=== PATIENT | male | born 1940 | race Caucasian/White ===

== ENCOUNTER 2017-03-24 20:30 | Inpatient (IN) ==
[2017-03-24] MEDS ORDERED: 0.9 % Sodium Chloride 1,000 ML IVC ONE (21:55)
[2017-03-24] MEDS ORDERED: Acetaminophen 325 MG TABLET PO ONE (21:55)
--- NOTE | 2017-03-24 22:27 | Emergency Department Note ---
Disposition Clinical Impression: Cellulitis Qualifiers: Site of cellulitis: extremity Site of cellulitis of extremity: lower extremity Laterality: left Qualified Code(s): L03.116 - Cellulitis of left lower limb Leukopenia Qualifiers: Leukopenia type: other Qualified Code(s): D72.818 - Other decreased white blood cell count Disposition: Admitted As Inpatient Condition: Fair Time of Disposition: 00:17 Fever HPI - General Chief Complaint: ED Fever Stated Complaint: Fever, dizzy, sore on L leg Time Seen by Provider: 03/24/17 22:04 Mode of arrival: ambulatory Limitations: no limitations Nursing Notes Reviewed: Yes Vital Signs Reviewed: Yes - History of Present Illness HPI Narrative: 77-year-old male presents with left leg swelling, left anterior leg redness, concern for possible cellulitis, patient's had temperatures 103 at home patient states his legs more swollen, he recently had a knee replacement in December with Dr. Jefferson reyes, he seen by his orthopedist about a week ago, he stated that his orthopedist place him on Bactrim he is better since then he has had more blisters on the anterior leg, more redness and swelling. He reports one out of 10 pain that he describes as achy leg. Denies chest pain, cough, myalgias, dysuria patient has reported some dizziness as well. Pt Subjective Complaint: fever, weakness Onset (ago): day(s) Maximum Temperature Reported: 103 F Temperature Source: oral Associated symptoms: Reports: chills, nausea. Denies: rigors, myalgias, nasal congestion, sore throat, vomiting Improves with: acetaminophen - Related Data Home Medications Medication Instructions Recorded Confirmed Ergocalciferol (VITAMIN D2) 100,000 unit PO QWEEK 02/07/15 03/22/15 [Vitamin D2 (50,000 UNIT)] Fluticasone Propionate Nasal 1 spray NS DAILY 02/07/15 03/22/15 [Flonase] Latanoprost [Xalatan] 1 drop OP HS 02/07/15 03/22/15 Lisinopril [Zestril] 2.5 mg PO DAILY 02/07/15 03/22/15 Multivitamin [Flintstones] 1 each PO DAILY 02/07/15 03/22/15 Nitroglycerin 0.4 mg SL Q5MIN PRN 02/07/15 02/07/15 [place]-3 Acid Ethyl Esters [Lovaza] 2 gm PO BID 02/07/15 03/22/15 [place]-3S/Dha/Epa/Fish Oil [Fish 1,200 mg PO BID 02/07/15 03/22/15 Oil 1,200 mg Softgel] Timolol Maleate 0.25% 1 drop OP BID 02/07/15 03/22/15 Plavix 75 mg PO DAILY 03/22/15 03/22/15 Pramipexole [Mirapex] 0.25 mg PO DAILY 03/22/15 03/22/15 Previous Rx's Medication Instructions Recorded Allopurinol [Zyloprim] 300 mg PO DAILY #1 tablet 02/01/15 Aspirin 81 mg PO DAILY tab.chew 02/01/15 Fenofibrate [Tricor] 162 mg PO DAILY tablet 02/01/15 Nitroglycerin [Nitrostat] 0.4 mg SL Q5M PRN #30 tab.subl 02/01/15 Simvastatin [Zocor] 20 mg PO QPM tablet 02/01/15 Metoprolol [Lopressor] 25 mg PO BID #60 tablet 02/11/15 Mupirocin [Bactroban Oint] 1 appl TP BID 14 Days tube 10/31/15 Clindamycin HCl 300 mg PO TID 7 Days #21 capsule 01/09/17 Allergies Allergy/AdvReac Type Severity Reaction Status Date / Time No Known Allergies Allergy Verified 01/09/17 14:52 All systems ED: reviewed and negative except as stated. Review of Systems: As Per HPI Constitutional: Reports: fever, chills Eyes: Denies: eye pain ENT ED: Denies: ear pain, throat pain Cardiovascular: Denies: chest pain Respiratory: Denies: cough, dyspnea Gastrointestinal: Denies: abdominal pain, nausea Genitourinary: Denies: urgency, dysuria Musculoskeletal: Denies: back pain Integumentary: Denies: rash, abrasion Neurological: Denies: headache Psychiatric: Denies: anxiety Endocrine: Denies: fatigue Hematological/Lymphatic: Denies: easy bleeding Fever PMH - Past Medical History Medical history: Reports: hyperlipidemia, hypertension Surgical history: Reports: herniorrhaphy Psychiatric history: Reports: no psych history - Social History Smoking Status: Never smoker Alcohol use: Reports: none Drug use: Reports: none Physical Exam Constitutional: febrile temperature 101.9 Eyes: PERRLA, sclera anicteric ENT & Mouth: MMM Neck: normal inspection, neck is supple Resp: CTA bilaterally, no resp distress CV: RRR, no m/g/r GI: normal inspection, soft, no guarding or rigidity Neuro: A&O3, CNII-XII grossly intact, MEHTA Skin: Erythema to the anterior left tibia with some blisters, no evidence of crepitus, +2 pitting edema. - General General appearance: alert Course Course Narrative: 77-year-old male with concern for cellulitis and left leg. Patient had failed outpatient Bactrim, plan is for septic workup CBC BMP lactated blood cultures, - Reevaluation(s) Reevaluation #1: 77 with evidence of leukopenia, lactic acidosis of 2.2, will be started on ceftriaxone repeat lactate, IV fluids admission to hospital his other source of infection his chest x-ray urinalysis and flu swab were negative. Time: 00:17 Vital Signs Temperature 101.9 F H 03/24/17 20:32 Pulse Rate 86 03/24/17 20:32 Respiratory Rate 20 03/24/17 20:32 Blood Pressure 140/52 03/24/17 20:32 O2 Sat by Pulse Oximetry 97 03/24/17 20:32 Temperature 98.2 F 03/24/17 23:44 Pulse Rate 69 03/25/17 00:11 Respiratory Rate 18 03/25/17 01:06 Blood Pressure 136/58 03/25/17 01:06 O2 Sat by Pulse Oximetry 96 03/25/17 00:11 Oxygen Delivery Oxygen Delivery Room Air Fever - Differential Diagnosis Likely: cellulitis, fever of occult origin, community acquired pneumonia, pyelonephritis, sepsis - Medical Records Medical records reviewed: Yes I reviewed the patient's medical records. - Lab Data Lab results reviewed: Yes I reviewed the patient's lab results. Result diagrams: 03/24/17 22:46 03/24/17 22:46 Lab Results 03/24/17 03/24/17 03/24/17 Range/Units 22:17 22:46 22:46 WBC 3.0 L (4.3-11.1) K/mcL RBC 4.42 (4.19-5.50) M/mcL Hgb 13.2 (12.9-16.9) g/dL Hct 38.9 (37.5-50.1) % MCV 88.0 (83.0-100.0) fL MCH 29.9 (28.0-33.3) pg MCHC 33.9 (31.6-35.5) g/dL RDW 14.0 (11.5-14.5) % Plt Count 157 (140-400) K/mcL MPV 9.5 (9.4-12.4) fL Immature Gran % 2.3 (0-4) % Seg Neutrophils % 75.9 % Lymphocytes % 15.5 % Monocytes % 4.3 % Eosinophils % 0.7 % Basophils % 1.3 % Neutrophils # 2.3 (1.6-8.9) K/mcL Lymphocytes # 0.5 L (0.6-4.6) K/mcL Monocytes # 0.1 (0.0-1.3) K/mcL Eosinophils # 0.0 (0.0-0.6) K/mcL Basophils # 0.0 (0.0-0.2) K/mcL PT (9.4-12.1) Seconds INR APTT (26.0-36.0) Seconds Sodium 131 L (136-145) mEq/L Potassium 3.8 (3.5-5.1) mEq/L Chloride 105 (98-107) mEq/L Carbon Dioxide 17 L (23-29) mEq/L BUN 25 H (8-23) mg/dL Creatinine 1.61 H (0.70-1.30) mg/dL Est GFR ( Amer) 51 L (> 60) Est GFR (Non-Af Amer) 42 L (> 60) BUN/Creatinine Ratio 16 (6-26) Glucose 158 H (70-105) mg/dL Calculated Osmolality 280 (280-300) Lactic Acid (0.5-2.2) mmol/L Calcium 8.7 (8.6-10.3) mg/dL Urine Color Yellow (Yellow) Urine Clarity Clear (Clear) Urine pH 6.0 (5.0-8.0) pH Units Ur Specific [place] 1.024 (1.010-1.025) Urine Protein Negative (Neg-Trace) mg/dL Urine Glucose (UA) Normal (Normal) mg/dL Urine Ketones Negative (Negative) mg/dL Urine Blood Negative (Negative) Urine Nitrite Negative (Negative) Urine Bilirubin Small H (Negative) Urine Urobilinogen Normal (Normal) mg/dL Ur Leukocyte Esterase Negative (Negative) Ur Culture Indicated? NO (NO) 03/24/17 03/24/17 Range/Units 22:46 22:46 WBC (4.3-11.1) K/mcL RBC (4.19-5.50) M/mcL Hgb (12.9-16.9) g/dL Hct (37.5-50.1) % MCV (83.0-100.0) fL MCH (28.0-33.3) pg MCHC (31.6-35.5) g/dL RDW (11.5-14.5) % Plt Count (140-400) K/mcL MPV (9.4-12.4) fL Immature Gran % (0-4) % Seg Neutrophils % % Lymphocytes % % Monocytes % % Eosinophils % % Basophils % % Neutrophils # (1.6-8.9) K/mcL Lymphocytes # (0.6-4.6) K/mcL Monocytes # (0.0-1.3) K/mcL Eosinophils # (0.0-0.6) K/mcL Basophils # (0.0-0.2) K/mcL PT 13.7 H (9.4-12.1) Seconds INR 1.3 APTT 28.8 (26.0-36.0) Seconds Sodium (136-145) mEq/L Potassium (3.5-5.1) mEq/L Chloride (98-107) mEq/L Carbon Dioxide (23-29) mEq/L BUN (8-23) mg/dL Creatinine (0.70-1.30) mg/dL Est GFR ( Amer) (> 60) Est GFR (Non-Af Amer) (> 60) BUN/Creatinine Ratio (6-26) Glucose (70-105) mg/dL Calculated Osmolality (280-300) Lactic Acid 2.2 (0.5-2.2) mmol/L Calcium (8.6-10.3) mg/dL Urine Color (Yellow) Urine Clarity (Clear) Urine pH (5.0-8.0) pH Units Ur Specific [place] (1.010-1.025) Urine Protein (Neg-Trace) mg/dL Urine Glucose (UA) (Normal) mg/dL Urine Ketones (Negative) mg/dL Urine Blood (Negative) Urine Nitrite (Negative) Urine Bilirubin (Negative) Urine Urobilinogen (Normal) mg/dL Ur Leukocyte Esterase (Negative) Ur Culture Indicated? (NO) - Radiology Data Radiology results reviewed: Yes I reviewed the patient's radiology results. Chest X-Ray 03/24/17 21:55 IMPRESSION: No acute cardiopulmonary abnormality. D/ / Connor Wylie MD / Connor Wylie MD Interpreting Provider: Connor Wylie MD Tibia/Fibula X-Ray 03/24/17 21:59 IMPRESSION: No acute osseous or soft tissue abnormality in the left calf. No plain film evidence of osteomyelitis. D/ / Khoa Campbell MD / Khoa Campbell MD Interpreting Provider: Khoa Campbell MD Attestation Statement - Attestation Attestation: I, Abhilash Rizo MD, personally evaluated this patient and discussed their management with the resident physician. I reviewed the resident's note and agree with the documented findings, medical decision making, and plan of care. 77-year-old male presents to the emergency department with a complaint of fever and not feeling well all day today. reports that he really much was in bed and slept most of the day today. When she came home from [place] this evening she states he told her that he had a problem and that he was weak and wobbly. She reports that he felt very hot when she touched him so she checked his temperature and it was 103.1. He has noticed decreased urine output today but no dysuria. He denies any chest pain or shortness of breath. No cough. There is been no sore throat or congestion. No abdominal pain. No nausea vomiting or diarrhea. He does complain of a rash on the right lower ye. On examination patient is a well-developed well-nourished well-appearing elderly male in no acute distress. He is alert and oriented 3. There is no cyanosis or diaphoresis. Breath sounds are decreased but equal bilaterally. No rales or wheezes noted. Heart regular rate and rhythm. Abdomen soft and nontender with normal bowel sounds. There is some erythema and tenderness of the right lower anterior leg with some skin ulcerations and vesicles. Labs reviewed. Chest x-ray negative. X-ray of the right tib-fib negative. The hospitalist, Dr. Goodwin, was consulted and accepted admission of the patient.
[2017-03-24 22:44] LABS: Bilirubin,Urine Small (Negative); Blood,Urine Negative (Negative); Clarity,Urine Clear (Clear); Color,Urine Yellow (Yellow); Glucose,Urine (UA) Normal (Normal); Ketones,Urine Negative (Negative); Leukocyte Esterase,Urine Negative (Negative); Nitrite,Urine Negative (Negative); Protein,Urine Negative (Neg-Trace); Specific Gravity,Urine 1.024 (1.010-1.025); Urobilinogen,Urine Normal (Normal)
[2017-03-24 22:57] LABS: Basophils % 1.3 %; Eosinophils % 0.7 %; Hematocrit 38.9 % (37.5-50.1); Hemoglobin 13.2 g/dL (12.9-16.9); Immature Granulocytes % 2.3 % (0-4); Lymphocytes # 0.5 K/mcL (0.6-4.6); Lymphocytes % 15.5 %; Mean Corpuscular HGB Conc 33.9 g/dL (31.6-35.5); Mean Corpuscular Hemoglobin 29.9 pg (28.0-33.3); Mean Platelet Volume 9.5 fL (9.4-12.4); Monocytes # 0.1 K/mcL (0.0-1.3); Monocytes % 4.3 %; Neutrophils # 2.3 K/mcL (1.6-8.9); Platelet Count 157 K/mcL (140-400); Red Blood Count 4.42 M/mcL (4.19-5.50); Segmented Neutrophils % 75.9 %
[2017-03-24 23:04] LABS: INR 1.3; Prothrombin Time 13.7 Seconds (9.4-12.1)
[2017-03-24 23:07] LABS: Activated Partial Thrombo Time 28.8 Seconds (26.0-36.0)
[2017-03-24 23:14] LABS: Calcium 8.7 mg/dL (8.6-10.3); Potassium 3.8 mEq/L (3.5-5.1)
[2017-03-25] MEDS ORDERED: cefTRIAXone 2,000 MG in Water for inj. (sterile) 20 ML IVP ONE (00:10)
[2017-03-25] MEDS ORDERED: 0.9 % Sodium Chloride 1,000 ML IVC ONE (00:13)
[2017-03-25] MEDS ORDERED: Naloxone 0.4 MG/ML INJ IVP PRN (04:00)
[2017-03-25] MEDS ORDERED: Acetaminophen 325 MG TABLET PO PRN (04:00)
[2017-03-25] MEDS ORDERED: Nitroglycerin 0.4 MG TAB.SUBL SL PRN (04:08)
--- NOTE | 2017-03-25 04:18 | Internal Med History&Physical ---
Date of Encounter: 03/25/17 Time of Encounter: 03:30 Assessment and Plan (1) Sepsis Current visit: Yes Status: Acute Patient has mild mental status change, acute renal failure, fever, and leukopenia. Meet criteria of sepsis. Source of infection is considered left lower leg cellulitis. - Start goal directed IV fluid resuscitation. - Place patient on Vanco and Rocephin to cover staph and strep - Continue closely monitor patient. Recheck lactate (first result 2.2) Patient is at high risk because he is on vancomycin need close monitoring Qualifiers: Sepsis type: sepsis due to unspecified organism Qualified Code(s): A41.9 - Sepsis, unspecified organism (2) CAD (coronary artery disease) Current visit: Yes Status: Acute S/P CABG. No chest pain. Continue home medications aspirin, Plavix, beta annabelle, and statin. Qualifiers: Coronary Disease-Associated Artery/Lesion type: bypass graft [place] vs. transplanted heart: [place] heart Associated angina: without angina Qualified Code(s): I25.810 - Atherosclerosis of coronary artery bypass graft(s) without angina pectoris (3) Restless leg syndrome Current visit: Yes Status: Acute Continue home medications (4) Acute renal failure Current visit: Yes Status: Acute Most likely due to sepsis. We will continue IV fluid, follow-up renal function. Avoid nephrotoxic medication Qualifiers: Acute renal failure type: unspecified Qualified Code(s): N17.9 - Acute kidney failure, unspecified (5) DVT prophylaxis Current visit: Yes Status: Acute Heparin subcutaneously (6) Cellulitis Current visit: Yes Status: Acute Management as above. Also low probability, will order US Doppler of left Leg to rule out DVT Qualifiers: Site of cellulitis: extremity Site of cellulitis of extremity: lower extremity Laterality: left Qualified Code(s): L03.116 - Cellulitis of left lower limb Internal Medicine - H&P: HPI Chief complaint: Left leg skin redness Admitted From: Home Plans for Post Hospital Care: Home History of present illness: Mr. Penn is a 77 year old male with history of restless leg syndrome, CAD S/P CABG, S/P total knee replacement bilaterally, present to ER for left-sided lower leg skin redness on and off for several months, worsening with fever for 2 days. Patient said his left leg has a redness and swelling for months after he had total knee replacements. Patient denies knee pain or limited range of movement of left knee. Patient take by mouth antibiotics as outpatient, the skin redness has improved but worsening again. Yesterday patient had a fever and feels chills. Patient denies headache, runny nose, sore throat, cough, shortness of breath, chest pain, abdominal pain, nausea/vomiting/diarrhea, urination symptoms. In ER, his temperature is 101.3, was treated with the Rocephin 2000 milligram IV once. When I saw patient, he answers questioning appropriately but shows sometimes drowsy. Past Med Surg Social Fam HX - Past Medical History Medical history: dementia, hyperlipidemia, hypertension Psychiatric history: no psych history - Past Surgical History Surgical History: herniorrhaphy - Social History Smoking Status: Never smoker Smokeless Tobacco Status: No Alcohol use: none Drug use: none - Family History Father Adopted: No Family Member Ethnicity: Non- Living Status: Hx Family Cardiac Disorders: Yes Hx Family Respiratory Disorders: No Hx Family Cancer: No Hx Family GI Disorders: No Hx Family Endocrine Disorder: No Hx Family Neuromuscular Disorders: No Hx Family Neurologic Disorders: No Hx Family HEENT Disorders: No Hx Family Autoimmune Disorders: No Internal Medicine - H&P: Meds Allopurinol [Zyloprim] 300 mg PO DAILY #1 tablet 02/01/15 [Rx] Aspirin 81 mg PO DAILY tab.chew 02/01/15 [Rx] Fenofibrate [Tricor] 162 mg PO DAILY tablet 02/01/15 [Rx] Nitroglycerin [Nitrostat] 0.4 mg SL Q5M PRN #30 tab.subl 02/01/15 [Rx] Simvastatin [Zocor] 20 mg PO QPM tablet 02/01/15 [Rx] Ergocalciferol (VITAMIN D2) [Vitamin D2 (50,000 UNIT)] 100,000 unit PO QWEEK 09/15 [History] Fluticasone Propionate Nasal [Flonase] 1 spray NS DAILY 02/07/15 [History] Latanoprost [Xalatan] 1 drop OP HS 02/07/15 [History] Lisinopril [Zestril] 2.5 mg PO DAILY 02/07/15 [History] Multivitamin [Flintstones] 1 each PO DAILY 12/07/15 [History] Nitroglycerin 0.4 mg SL Q5MIN PRN 02/07/15 [History] [place]-3 Acid Ethyl Esters [Lovaza] 2 gm PO BID 02/07/15 [History] [place]-3S/Dha/Epa/Fish Oil [Fish Oil 1,200 mg Softgel] 1,200 mg PO BID 02/07/15 [ History] Timolol Maleate 0.25% 1 drop OP BID 02/07/15 [History] Metoprolol [Lopressor] 25 mg PO BID #60 tablet 02/11/15 [Rx] Plavix 75 mg PO DAILY 03/22/15 [History] Pramipexole [Mirapex] 0.25 mg PO DAILY 03/22/15 [History] Mupirocin [Bactroban Oint] 1 appl TP BID 14 Days tube 10/31/15 [Rx] Clindamycin HCl 300 mg PO TID 7 Days #21 capsule 01/09/17 [Rx] 3 Allergy/AdvReac Type Severity Reaction Status Date / Time No Known Allergies Allergy Verified 01/09/17 14:52 All Systems PM: A 10-system review of systems was performed and is negative for pertinent findings except as documented above in the HPI. - Constitutional Vitals: Temp Pulse Resp BP Pulse Ox 98.2 F 69 18 136/58 2 03/24/17 23:44 03/25/17 00:11 03/25/17 01:06 03/25/17 01:06 03/25/17 01:45 General appearance: Present: mild distress, A&O X 3, answers questions appropriately - Head Head exam: Present: atraumatic, normocephalic - Eye Eye exam: Present: PERRL, conjuntiva pink, sclera anicteric Pupils: Present: PERRL - Neck Neck exam general surgery: Present: supple, trachea midline. Absent: lymphadenopathy - Respiratory Respiratory exam: Present: CTAB. Absent: accessory muscle use, rales, rhonchi, wheezes - Cardiovascular Cardiovascular exam: Present: RRR, +S1, +S2. Absent: diastolic murmur, gallop, rubs, systolic murmur - GI/Abdominal GI/Abdominal exam: Present: normal bowel sounds, soft, no peritoneal signs. Absent: distended, tenderness - Extremities Exam Extremities exam: Present: warm, radial pulses palpable and symmetrical. Absent : calf tenderness, cyanotic, pedal edema Additional comments: LLE anterior tibia area skin redness, with blisters, no warmth, no clear margin with normal skin. Lt Leg is thicker than Rt. - Neurological Exam Neurological exam: Present: CN II-XII intact, oriented X3, no focal deficits. Absent: pronater drift, facial droop, speech deficit - Skin Skin exam: Present: dry, intact Internal Med - H&P Results - Labs CBC & Chem 7: 03/24/17 22:46 03/24/17 22:46
[2017-03-25] MEDS ORDERED: Vancomycin 1,250 MG in D5% in Water 250 ML IVPB SCH (05:00)
[2017-03-25] MEDS: 0.9 % Sodium Chloride 1,000 ML IVC SCH ×2 (05:06→15:57)
[2017-03-25] MEDS: *HR* Heparin 5,000 UNIT/ML VIAL SQ SCH ×2 (05:06→17:00)
[2017-03-25 06:08] LABS: Basophils % 1.4 %; Eosinophils % 1.1 %; Hematocrit 38.5 % (37.5-50.1); Hemoglobin 12.9 g/dL (12.9-16.9); Immature Granulocytes % 1.8 % (0-4); Lymphocytes # 0.5 K/mcL (0.6-4.6); Lymphocytes % 17.3 %; Mean Corpuscular HGB Conc 33.5 g/dL (31.6-35.5); Mean Corpuscular Hemoglobin 29.4 pg (28.0-33.3); Mean Corpuscular Volume 87.7 fL (83.0-100.0); Mean Platelet Volume 9.4 fL (9.4-12.4); Monocytes # 0.1 K/mcL (0.0-1.3); Neutrophils # 2.1 K/mcL (1.6-8.9); Platelet Count 131 K/mcL (140-400); Red Blood Count 4.39 M/mcL (4.19-5.50); Red Cell Distribution Width 14.3 % (11.5-14.5); Segmented Neutrophils % 74.4 %
[2017-03-25 06:22] LABS: BUN/Creatinine Ratio 15 (6-26); Blood Urea Nitrogen 21 mg/dL (8-23); Calcium 8.6 mg/dL (8.6-10.3); Carbon Dioxide 20 mEq/L (23-29); Chloride 108 mEq/L (98-107); Glucose 162 mg/dL (70-105); Magnesium 1.9 mg/dL (1.6-2.6); Osmolality,Calculated 287 (280-300); Sodium 135 mEq/L (136-145); eGFR For African Americans > 60 (> 60); eGFR For Non-African Americans 50 (> 60)
[2017-03-25] MEDS: Vancomycin 1,250 MG in D5% in Water 250 ML IVPB SCH (06:42)
[2017-03-25] MEDS: Aspirin 81 MG TAB.CHEW PO SCH (08:27)
--- NOTE | 2017-03-25 13:43 | Event Note ---
Date of Encounter: 03/25/17 Time of Encounter: 09:30 I have reviewed the history and physical examination, obtained and documented by the hospitalist and I personally participated in the case components. I have examined the patient and agree with assessment and plan of care as outlined in H &P
[2017-03-26] MEDS ORDERED: cefTRIAXone 2,000 MG in Water for inj. (sterile) 20 ML 20 ML IVPB SCH (00:01)
[2017-03-26] MEDS: Vancomycin 1,250 MG in D5% in Water 250 ML IVPB SCH (05:04)
[2017-03-26] MEDS: *HR* Heparin 5,000 UNIT/ML VIAL SQ SCH ×2 (05:06→17:03)
[2017-03-26] MEDS: Aspirin 81 MG TAB.CHEW PO SCH (08:12)
--- NOTE | 2017-03-26 14:57 | Internal Med Progress Note ---
Date of Encounter: 03/26/17 Time of Encounter: 15:00 - Assessment and plan (1) Cellulitis Current Visit: Yes Status: Acute Assessment and plan: Patient is day #2 Rocephin and vancomycin He has no history of MRSA. DC Vancomycin. I will change him to IV Ancef 2 g every 8 hours. Monitor for response. If he continues to improve, will likely be of the discharge home on Keflex. Wei overnight. His sepsis is clinically resolved. Repeat blood work in the morning. Discussed with patient and at bedside. Qualifiers: Site of cellulitis: extremity Site of cellulitis of extremity: lower extremity Laterality: left Qualified Code(s): L03.116 - Cellulitis of left lower limb (2) Acute renal failure Current Visit: Yes Status: Acute Assessment and plan: Improving. He was given IV fluids and is now taking good oral intake. Repeat a BMP in the morning. Avoid nephrotoxins. Suspect acute renal failure was due to sepsis.? Bactrim contributed to an elevated creatinine. Qualifiers: Acute renal failure type: unspecified Qualified Code(s): N17.9 - Acute kidney failure, unspecified (3) CAD (coronary artery disease) Current Visit: Yes Status: Acute Assessment and plan: Stable, no angina Qualifiers: Coronary Disease-Associated Artery/Lesion type: bypass graft [place] vs. transplanted heart: [place] heart Associated angina: without angina Qualified Code(s): I25.810 - Atherosclerosis of coronary artery bypass graft(s) without angina pectoris (4) DVT prophylaxis Current Visit: Yes Status: Acute (5) Leukopenia Current Visit: Yes Status: Acute Assessment and plan: Suspect due to sepsis. Repeat CBC in the morning. Qualifiers: Leukopenia type: other Qualified Code(s): D72.818 - Other decreased white blood cell count (6) Restless leg syndrome Current Visit: Yes Status: Acute (7) Sepsis Current Visit: Yes Status: Acute Assessment and plan: Clinically resolved. Continue current therapy as mentioned above. Qualifiers: Sepsis type: sepsis due to unspecified organism Qualified Code(s): A41.9 - Sepsis, unspecified organism (8) Abnormal stress test Current Visit: No Status: Acute (9) CAD in [place] artery Current Visit: No Status: Acute (10) Chest discomfort Current Visit: No Status: Acute - Time Spent With Patient 25 - 35 minutes - Subjective Interval history: History of present illness: Mr. Penn is a 77 year old male with history of restless leg syndrome, CAD S/P CABG, S/P total knee replacement bilaterally, present to ER for left-sided lower leg skin redness on and off for several months, worsening with fever for 2 days. Patient said his left leg has a redness and swelling for months after he had total knee replacements. Patient denies knee pain or limited range of movement of left knee. Patient take by mouth antibiotics as outpatient, the skin redness has improved but worsening again. Yesterday patient had a fever and feels chills. Patient denies headache, runny nose, sore throat, cough, shortness of breath, chest pain, abdominal pain, nausea/vomiting/diarrhea, urination symptoms. In ER, his temperature is 101.3, was treated with the Rocephin 2000 milligram IV once. When I saw patient, he answers questioning appropriately but shows sometimes drowsy. 03/26: She reports his leg swelling is gone down significantly. Pain is always gone. No fevers or chills. No chest pain or shortness of breath. No nausea, vomiting, diarrhea. States she was on Bactrim prior to arrival for suspected cellulitis of his left lower extremity. He denies ever having a history of MRSA. This is his second bout of cellulitis since knee surgery last year. Does not complain of any pain or swelling in his left knee joint, or any restricted motion in his joint. - Constitutional Vitals: Temp Pulse Resp BP Pulse Ox 98.3 F 60 17 153/70 98 03/26/17 11:30 03/26/17 11:30 03/26/17 11:30 03/26/17 11:30 03/26/17 11:30 General appearance: Present: mild distress, A&O X 3, no acute distress, answers questions appropriately - Extremities Exam Extremities exam: Present: pedal edema, warm, radial pulses palpable and symmetrical. Absent: calf tenderness, cyanotic Additional comments: Left lower extremity has numerous scab wounds, none of which appear to be acutely infected. He has mild erythema and warmth from the mid anterior ye down to his left ankle and dorsum of left foot. Trace edema. No tenderness. No pain of proportion to exam. No crepitance. Left knee has full range of motion without edema or tenderness. Plan refill less than 2.5 seconds. Hands and feet are well perfused with good pulses. Internal Medicine: Result - Labs CBC & Chem 7: 03/25/17 06:00 03/25/17 06:00 - ABG Interpretation ABG results: PT/INR, D-dimer PT 13.7 Seconds (9.4-12.1) H 03/24/17 22:46 Consult Discharge Plan - Plan Referrals: Nathaly Augustin MD [Primary Care Provider] -
[2017-03-26] MEDS: CeFAZolin Premix DUPLEX 2,000 MG/50 ML BAG IVPB SCH (15:30)
[2017-03-26] MEDS ORDERED: CeFAZolin Syringe 2,000MG/20 ML SYR IVPB SCH (16:00)
[2017-03-27] MEDS: CeFAZolin Premix DUPLEX 2,000 MG/50 ML BAG IVPB SCH ×3 (01:45→08:25)
[2017-03-27 04:13] LABS: Basophils % 1.1 %; Eosinophils # 0.1 K/mcL (0.0-0.6); Eosinophils % 2.2 %; Hemoglobin 12.8 g/dL (12.9-16.9); Immature Granulocytes % 0.3 % (0-4); Lymphocytes # 2.2 K/mcL (0.6-4.6); Lymphocytes % 59.3 %; Mean Corpuscular HGB Conc 33.7 g/dL (31.6-35.5); Mean Corpuscular Hemoglobin 29.4 pg (28.0-33.3); Mean Corpuscular Volume 87.2 fL (83.0-100.0); Mean Platelet Volume 9.8 fL (9.4-12.4); Monocytes # 0.3 K/mcL (0.0-1.3); Monocytes % 8.1 %; Neutrophils # 1.1 K/mcL (1.6-8.9); Platelet Count 149 K/mcL (140-400); Red Blood Count 4.36 M/mcL (4.19-5.50); Red Cell Distribution Width 13.9 % (11.5-14.5)
[2017-03-27 04:23] LABS: BUN/Creatinine Ratio 12 (6-26); Blood Urea Nitrogen 12 mg/dL (8-23); Calcium 9.3 mg/dL (8.6-10.3); Carbon Dioxide 22 mEq/L (23-29); Chloride 109 mEq/L (98-107); Glucose 135 mg/dL (70-105); Osmolality,Calculated 290 (280-300); Potassium 3.8 mEq/L (3.5-5.1); Sodium 139 mEq/L (136-145); eGFR For African Americans > 60 (> 60); eGFR For Non-African Americans > 60 (> 60)
[2017-03-27 04:36] LABS: Platelet Estimate Normal (Normal); Reactive Lymphocytes Present (Not Present)
[2017-03-27] MEDS: *HR* Heparin 5,000 UNIT/ML VIAL SQ SCH (05:36)
[2017-03-27] MEDS ORDERED: Aminoglycoside Consult 1 EACH MC ONE (07:37)
[2017-03-27] MEDS: Aspirin 81 MG TAB.CHEW PO SCH (08:25)
[2017-03-27 10:44] VITALS: BP 130/67
[2017-03-27 13:59] LABS: Hematocrit 38.5 % (37.5-50.1); Hemoglobin 13.4 g/dL (12.9-16.9)
--- NOTE | 2017-03-27 15:08 | Discharge Summary ---
Date of Encounter: 03/27/17 Time of Encounter: 12:00 - Discharge Diagnosis (1) Cellulitis Priority: Primary Status: Acute Comments: Patient is day #3 IV Ancef. Significantly improved in terms of erythema and swelling. No pain. Continue on Keflex 1 g by mouth 3 times a day to complete a total of 10 days. This follow-up with his primary care provider prior to completion of antibiotics. They may need to be extended. He will elevate his legs and use compression stockings as well chronic venous insufficiency. Does have small scabs on his anterior ye which need to be monitored closely Qualifiers: Site of cellulitis: extremity Site of cellulitis of extremity: lower extremity Laterality: left Qualified Code(s): L03.116 - Cellulitis of left lower limb (2) Acute renal failure Priority: Secondary Status: Acute Comments: (2) Acute renal failure Current Visit: Yes Status: Acute Assessment and plan: Improving. He was given IV fluids and is now taking good oral intake. Repeat a BMP in the morning. Avoid nephrotoxins. Suspect acute renal failure was due to sepsis.? Bactrim contributed to an elevated creatinine. Qualifiers: Acute renal failure type: unspecified Qualified Code(s): N17.9 - Acute kidney failure, unspecified 03/27: Resolved. Qualifiers: Acute renal failure type: unspecified Qualified Code(s): N17.9 - Acute kidney failure, unspecified (3) CAD (coronary artery disease) Priority: Secondary Status: Acute Comments: Stable Qualifiers: Coronary Disease-Associated Artery/Lesion type: bypass graft [place] vs. transplanted heart: [place] heart Associated angina: without angina Qualified Code(s): I25.810 - Atherosclerosis of coronary artery bypass graft(s) without angina pectoris (4) DVT prophylaxis Priority: Secondary Status: Acute (5) Leukopenia Priority: Secondary Status: Acute Qualifiers: Leukopenia type: other Qualified Code(s): D72.818 - Other decreased white blood cell count (6) Restless leg syndrome Priority: Secondary Status: Acute (7) Sepsis Priority: Primary Status: Acute Qualifiers: Sepsis type: sepsis due to unspecified organism Qualified Code(s): A41.9 - Sepsis, unspecified organism (8) Abnormal stress test Priority: Secondary Status: Acute (9) CAD in [place] artery Priority: Secondary Status: Acute - Discharge Medications Prescriptions: Cephalexin [Keflex] 1,000 mg PO TID #30 capsule Home Medications: Allopurinol [Zyloprim] 300 mg PO DAILY #1 tablet 02/01/15 [Rx] Aspirin 81 mg PO DAILY tab.chew 02/01/15 [Rx] Fenofibrate [Tricor] 162 mg PO DAILY tablet 02/01/15 [Rx] Fluticasone Propionate Nasal [Flonase] 1 spray NS DAILY 02/07/15 [History] Latanoprost [Xalatan] 1 drop OP HS 02/07/15 [History] Lisinopril [Zestril] 2.5 mg PO DAILY 02/07/15 [History] Multivitamin [Flintstones] 1 each PO DAILY 02/07/15 [History] Nitroglycerin 0.4 mg SL Q5MIN PRN 02/07/15 [History] [place]-3 Acid Ethyl Esters [Lovaza] 2 gm PO BID 02/07/15 [History] [place]-3S/Dha/Epa/Fish Oil [Fish Oil 1,200 mg Softgel] 1,200 mg PO BID 02/07/15 [ History] Timolol Maleate 0.25% 1 drop OP BID 02/07/15 [History] Metoprolol [Lopressor] 25 mg PO BID #60 tablet 02/11/15 [Rx] Clopidogrel [Plavix] 75 mg PO DAILY 03/22/15 [History] Pramipexole [Mirapex] 0.25 mg PO DAILY 03/22/15 [History] Donepezil [Aricept] 5 mg PO HS 03/25/17 [History] Ergocalciferol (VITAMIN D2) [Vitamin D2] 2,000 unit PO BID 03/25/17 [History] Memantine HCl 5 mg PO DAILY 03/25/17 [History] rOPINIRole [Requip] 3 mg PO DAILY 03/25/17 [History] Acetaminophen [Tylenol] 650 mg PO Q6HR PRN tablet 03/27/17 [Rx] Cephalexin [Keflex] 1,000 mg PO TID #30 capsule 03/27/17 [Rx] Donepezil [Aricept] 5 mg PO HS tablet 03/27/17 [Rx] Memantine [Namenda] 5 mg PO HS tablet 03/27/17 [Rx] Nitroglycerin 0.4 mg SL Q5M PRN tab.subl 03/27/17 [Rx] rOPINIRole [Requip] 3 mg PO HS tablet 03/27/17 [Rx] Allergies/Adverse Reactions: 3 Allergy/AdvReac Type Severity Reaction Status Date / Time No Known Allergies Allergy Verified 01/09/17 14:52 Procedures/tests Complete & Pending: Procedures Performed prior 72 hours Category Date Time Status Venous Doppler [EV venous imaging LE LT] Routine Y 03/25/17 04:09 Completed Date of admission: 03/25/17 04:00 Primary care physician: Nathaly Augustin Discharging clinician: Seth Bains Anticipated date of discharge: 03/27/17 - Patient Status Disposition: Home, Self-Care Condition: Fair Functional capacity at discharge: independent ambulation Overall status at discharge: patient is back to baseline - Discharge Instructions Follow Up With: Nathaly Augustin MD [Primary Care Provider] - 04/09/17 11:15 am (Please follow up as schedule...) Interval History: Patient was treated initially with Zosyn and vancomycin on hospital day 1, then transition to Ancef 2 g IV every 8 hours on hospital day 2. By hospital day 3 his leg swelling and redness had significantly improved. He was transitioned to oral Keflex 1 g by mouth 3 times a day to complete a ten-day course. He did have loose stools during his hospitalization which ended discharge was resolving and the stools are more formed. He did not have a leukocytosis or fever, and C. difficile was not suspected. Patient otherwise was doing well his renal function improved. He did have some confusion which was felt to be possibly due to sundowning. Of note patient does not have any history of MRSA, and we did not see an indication to treat empirically for MRSA. This is his second episode of cellulitis since his knee surgery, and he will need preventive measures to hopefully prevent recurrence. He was recommended for compression stockings and elevation as much as possible. He also has small wounds which need close follow -up. Says is his primary care physician Condition on discharge stable. 32 minutes spent on discharge and coordination of care. prior to completion of antibiotics. Hospital course: Mr. Penn is a 77 year old male - Time Spent with Patient Total time spent providing and/or coordinating discharge services: Greater than 30 minutes (32 minutes) - Constitutional Vitals: Temp Pulse Resp BP Pulse Ox 97.6 F 57 17 130/67 97 03/27/17 10:40 03/27/17 10:40 03/27/17 10:40 03/27/17 10:40 03/27/17 10:40 General appearance: Present: mild distress, A&O X 3, no acute distress, answers questions appropriately - Extremities Exam Extremities exam: Present: pedal edema (Left lower extremity with near complete resolution of erythema. All scabs appear to be well-healed. Trace edema.), warm, radial pulses palpable and symmetrical. Absent: calf tenderness, cyanotic - VTE Documentation of Mechanical Device: Graduated compression elastic hosiery
== END 2017-03-27 15:51 | disposition home or self-care (01) | DRG 872 ==
LOC: EMEROO 20:30 → 2SOUTHHOLD 20:30 → 2ANU 03-25 13:07
PROVIDERS: ADMIT Pediatrics; ATTEND Hospitalist

== ENCOUNTER 2018-09-26 12:18 | Observation (INO) ==
[2018-09-26 12:48] LABS: Hematocrit 39.4 % (37.5-50.1); Hemoglobin 13.1 g/dL (12.9-16.9); Immature Platelets 2.5 % (1.1-6.1); Mean Corpuscular HGB Conc 33.2 g/dL (31.6-35.5); Mean Corpuscular Hemoglobin 30.8 pg (28.0-33.3); Mean Corpuscular Volume 92.7 fL (83.0-100.0); Mean Platelet Volume 9.8 fL (9.4-12.4); Red Blood Count 4.25 M/mcL (4.19-5.50); Red Cell Distribution Width 13.7 % (11.5-14.5); White Blood Count 5.1 K/mcL (4.3-11.1)
--- NOTE | 2018-09-26 12:49 | Emergency Department Note ---
Disposition Clinical Impression: TIA (transient ischemic attack) Disposition: Admitted As Inpatient Condition: Fair Forms: ED Satisfaction Letter Time of Disposition: 15:00 General Adult HPI - General Chief complaint: ED Neuro Symptoms/Deficit Stated complaint: neuro Time Seen by Provider: 09/26/18 12:40 Source: patient Limitations: no limitations Nursing Notes Reviewed: Yes Vital Signs Reviewed: Yes - History of Present Illness HPI Narrative: Presents with symptoms that started about 12:15 today including difficult time moving the right leg with associated numbness as well as numbness of the right arm and symptoms are constant and lasted for about 15 minutes and are now resolv ed. Patient does have a history of a stroke which was seen on MRI scan in 2017. At one point the patient was diagnosed with dementia but then they are now questioning this diagnosis. He denies any slurred speech, facial droop or any new confusion. No pain in the head, neck, chest, abdomen or back. Social history: No smoking or alcohol or drugs. Is here with the who helps with the history. Pain Scale: 0 - Related Data Home Medications Medication Instructions Recorded Confirmed Multivitamin [Flintstones] 1 each PO DAILY 02/07/15 09/26/18 [place]-3 Acid Ethyl Esters [Lovaza] 2 gm PO BID 02/07/15 09/26/18 Clopidogrel [Plavix] 75 mg PO DAILY 03/22/15 09/26/18 Ergocalciferol (VITAMIN D2) 2,000 unit PO BID 03/25/17 09/26/18 [Vitamin D2] Allopurinol [Zyloprim] 300 mg PO DAILY 10/25/17 09/26/18 Donepezil [Aricept] 10 mg PO HS 10/25/17 09/26/18 Fenofibrate 160 mg PO DAILY 10/25/17 09/26/18 Gabapentin [Neurontin] 100 mg PO HS 10/25/17 09/26/18 Ipratropium [place] 2 spray NS BID 10/25/17 09/26/18 Latanoprost [Xalatan] 1 drop BOTH EYES DAILY 10/25/17 09/26/18 Lisinopril 2.5 mg PO DAILY 10/25/17 09/26/18 Memantine [Namenda] 10 mg PO BID 10/25/17 09/26/18 Metoprolol Tartrate [Lopressor] 25 mg PO BID 10/25/17 09/26/18 Montelukast Sodium [Singulair] 10 mg PO DAILY 10/25/17 09/26/18 Mupirocin [Centany At] 1 each TP TID PRN 10/25/17 09/26/18 Timolol Maleate 0.5% 1 drop BOTH EYES DAILY 10/25/17 09/26/18 Simvastatin [Zocor] 10 mg PO HS 06/10/18 09/26/18 Fluticasone Propionate Nasal 50 mcg NS DAILY 06/12/18 09/26/18 [Flonase] GlipiZIDE [Glipizide Xl] 5 mg PO DAILY 09/26/18 09/26/18 Sitagliptin Phos/Metformin HCl 1 each PO BID 09/26/18 09/26/18 [Janumet 50-500 mg Tablet] Previous Rx's Medication Instructions Recorded Aspirin 81 mg PO DAILY tab.chew 02/01/15 Acetaminophen [Tylenol] 650 mg PO Q6HR PRN tablet 03/27/17 Nitroglycerin 0.4 mg SL Q5M PRN tab.subl 03/27/17 rOPINIRole [Requip] 3 mg PO HS tablet 03/27/17 Blood-Glucose Meter [Blood Glucose 1 each MC QID #1 each 06/18/18 Monitoring] Allergies Allergy/AdvReac Type Severity Reaction Status Date / Time No Known Allergies Allergy Verified 10/23/17 14:52 Review of Systems: Constitutional: No fever Vision: No blurred vision ENT: No new rhinorrhea Respiratory: No cough Allergic: No allergies : No blood in urine GI: No blood in stool Hematologic: No bruising Dermatologic: No skin rash Musculoskeletal: No pain in the extremities Neuro: No numbness of the extremities Past Medical History - Past Medical History Medical history: Reports: coronary artery disease, CVA, dementia, diabetes, glaucoma, hyperlipidemia, hypertension, kidney stones Surgical history: Reports: coronary bypass (CABG), herniorrhaphy, knee replacement Psychiatric history: Reports: no psych history - Social History Smoking Status: Never smoker Smokeless Tobacco Status: No Alcohol use: Reports: none Drug use: Reports: none Physical Exam CONSTITUTIONAL: Well-appearing; well-nourished; A&O X3, in no apparent distress HEAD: Normocephalic; atraumatic. EYES: PERRL, EOMI, no scleral icterus NOSE: The nose is normal in appearance without rhinorrhea NECK: Supple without rigidity, no MARIIA RESP: Normal chest excursion with respiration; breath sounds clear and equal bilaterally; no wheezes, rhonchi, or rales CARD: Regular rhythm, without murmurs, rub or gallop ABD: Non-distended; non-tender, soft, without rigidity, rebound or guarding SKIN: Normal for age and race; warm and dry; no apparent lesions, no rash NEUROLOGICAL: Patient is alert and oriented times three except that he thought the month was November and then he thought the month was July . Cranial nerves III-XII are intact. Sensory and motor functions are intact. Strength is 5/5 for flexion and extension in all 4 extremities. Finger to nose testing is equal and normal bilaterally. - General Limitations: no limitations General appearance: alert, in no apparent distress Course Vital Signs Temperature 97.7 F 09/26/18 12:20 Pulse Rate 53 09/26/18 12:20 Respiratory Rate 18 09/26/18 12:20 Blood Pressure 131/63 09/26/18 12:20 O2 Sat by Pulse Oximetry 97 09/26/18 12:20 Temperature 97.7 F 09/26/18 12:26 Pulse Rate 54 09/26/18 14:38 Respiratory Rate 17 09/26/18 14:38 Blood Pressure 133/61 09/26/18 14:38 O2 Sat by Pulse Oximetry 100 09/26/18 14:38 Oxygen Delivery Oxygen Delivery Room Air Medical Decision Making - MDM Narrative Medical decision making narrative: Patient stroke scale is 1 and this appears to be chronic according to . The patient does not have any current symptoms as they are completely resolved. Since Iconsistent with TIA. Head CT and labs and EKG are done. The EKG shows sinus bradycardia with a rate of 49 bpm with some minimal T-wave flattening in aVL and otherwise normal without showing ischemia. The patient will be admitted to the hospital. He is not a thrombolytic candidate due to complete resolution of symptoms and very low stroke scale 1249 I did review the patient's test results. I did speak with Dr. Burciaga who is the hospitalist who accepts the patient for admission for further evaluation and management of TIA. [id number] - Medical Records Medical records reviewed: Yes I reviewed the patient's medical records. - Lab Data Lab results reviewed: Yes I reviewed the patient's lab results. Result diagrams: 09/26/18 12:32 09/26/18 12:32 Lab Results 09/26/18 09/26/18 Range/Units 12:32 12:32 WBC 5.1 (4.3-11.1) K/mcL RBC 4.25 (4.19-5.50) M/mcL Hgb 13.1 (12.9-16.9) g/dL Hct 39.4 (37.5-50.1) % MCV 92.7 (83.0-100.0) fL MCH 30.8 (28.0-33.3) pg MCHC 33.2 (31.6-35.5) g/dL RDW 13.7 (11.5-14.5) % Plt Count 182 (140-400) K/mcL MPV 9.8 (9.4-12.4) fL Immature Plt Fraction 2.5 (1.1-6.1) % Sodium 138 (136-145) mEq/L Potassium 4.5 (3.5-5.1) mEq/L Chloride 106 (98-107) mEq/L Carbon Dioxide 27 (23-29) mEq/L BUN 32 H (8-23) mg/dL Creatinine 1.26 (0.70-1.30) mg/dL Est GFR ( Amer) > 60 (> 60) Est GFR (Non-Af Amer) 55 L (> 60) BUN/Creatinine Ratio 25 (6-26) Glucose 94 (70-105) mg/dL Calculated Osmolality 293 (280-300) Calcium 9.8 (8.6-10.3) mg/dL Troponin I < 0.03 (< 0.04) ng/mL - Radiology Data Radiology results reviewed: Yes I reviewed the patient's radiology results. NIH Stroke Scale - Level of Consciousness LOC: Alert - LOC Questions LOC Questions: Answers one correctly - LOC Commands LOC Commands: Performs both correctly - Best Gaze Best Gaze: Normal - Visual Visual: No visual loss - Facial Palsy Facial Palsy: Normal - Motor Arms Motor Arm-Left: No drift for 10 seconds Motor Arm-Right: No drift for 10 seconds - Motor Legs Motor Leg-Left: No drift for 5 seconds Motor Leg-Right: No drift for 5 seconds - Limb Ataxia Limb Ataxia: Normal, No Ataxia - Sensory Sensory: Normal - Best Language Best Language: No aphasia - Dysarthria Dysarthria: Normal - Extinction and Inattention Extinction and Inattention: Normal - NIHSS Total Score NIHSS Total Score: 1
[2018-09-26 13:01] LABS: BUN/Creatinine Ratio 25 (6-26); Blood Urea Nitrogen 32 mg/dL (8-23); Calcium 9.8 mg/dL (8.6-10.3); Carbon Dioxide 27 mEq/L (23-29); Chloride 106 mEq/L (98-107); Glucose 94 mg/dL (70-105); Osmolality,Calculated 293 (280-300); Potassium 4.5 mEq/L (3.5-5.1); Sodium 138 mEq/L (136-145); eGFR For African Americans > 60 (> 60); eGFR For Non-African Americans 55 (> 60)
[2018-09-26 13:18] LABS: Troponin I < 0.03 ng/mL (< 0.04)
--- NOTE | 2018-09-26 16:14 | Internal Med History&Physical ---
Date of Encounter: 09/26/18 Time of Encounter: 16:14 Internal Medicine - H&P: HPI Chief complaint: syncope History of present illness: Mr. Penn is a 78 year old male coronary artery disease, CVA, dementia, diabetes, glaucoma, hyperlipidemia, hypertension, kidney stones, sepsis, TRISH CPAP, diverticulosis, gout, Vit D def and Alzheimers who presents with sudden onset od difficulty with moving the right leg associated with numbness of the right arm. the patient stated that his symptoms was completely resolved , however given his prior history of CVA his was concerned and decided to seek medical attention the patient was evaluated by the ER staff and decision was made to admit the patient for further evaluation and management of TIA. Past Med Surg Social Fam HX - Past Medical History Medical history: coronary artery disease, CVA, dementia, diabetes, glaucoma, hy perlipidemia, hypertension, kidney stones Additional medical history: sepsis. TRISH CPAP. diverticulosis. gout. Vit D def. Alzheimers Psychiatric history: no psych history - Past Surgical History Surgical History: coronary bypass (CABG), herniorrhaphy, knee replacement Additional surgical history: heart catheterization. CABG Dr [place] 2014. hernia 1991. lithotripsy [place]. Right TKR [place] 2016. left knee replacement [place] 2017 - Social History Smoking Status: Never smoker Smokeless Tobacco Status: No Alcohol use: none Drug use: none - Family History Father Adopted: No Family Member Ethnicity: Non- Living Status: Hx Family Cardiac Disorders: Yes Hx Family Respiratory Disorders: No Hx Family Cancer: No Hx Family GI Disorders: No Hx Family Endocrine Disorder: Yes Hx Family Neuromuscular Disorders: No Hx Family Neurologic Disorders: No Hx Family HEENT Disorders: No Hx Family Autoimmune Disorders: No Internal Medicine - H&P: Meds Aspirin 81 mg PO DAILY tab.chew 02/01/15 [Rx] Multivitamin [Flintstones] 1 each PO DAILY 02/07/15 [History] [place]-3 Acid Ethyl Esters [Lovaza] 2 cap PO BID 02/07/15 [History] Clopidogrel [Plavix] 75 mg PO DAILY 03/22/15 [History] Acetaminophen [Tylenol] 650 mg PO Q6HR PRN tablet 03/27/17 [Rx] Nitroglycerin 0.4 mg SL Q5M PRN tab.subl 03/27/17 [Rx] rOPINIRole [Requip] 3 mg PO HS tablet 03/27/17 [Rx] Allopurinol [Zyloprim] 300 mg PO DAILY 10/25/17 [History] Donepezil [Aricept] 10 mg PO HS 10/25/17 [History] Fenofibrate 160 mg PO DAILY 10/25/17 [History] Gabapentin [Neurontin] 100 mg PO HS 10/25/17 [History] Ipratropium [place] 2 spray NS BID 10/25/17 [History] Latanoprost [Xalatan] 1 drop BOTH EYES DAILY 10/25/17 [History] Lisinopril 2.5 mg PO DAILY 10/25/17 [History] Memantine [Namenda] 10 mg PO BID 10/25/17 [History] Metoprolol Tartrate [Lopressor] 25 mg PO BID 10/25/17 [History] Montelukast Sodium [Singulair] 10 mg PO DAILY 10/25/17 [History] Mupirocin [Centany At] 1 each TP TID PRN 10/25/17 [History] Timolol Maleate 0.5% 1 drop BOTH EYES DAILY 10/25/17 [History] Simvastatin [Zocor] 10 mg PO HS 06/10/18 [History] Fluticasone Propionate Nasal [Flonase] 50 mcg NS DAILY 06/12/18 [History] GlipiZIDE [Glipizide Xl] 5 mg PO DAILY 09/26/18 [History] Sitagliptin Phos/Metformin HCl [Janumet 50-500 mg Tablet] 1 each PO BID 09/26/18 [History] Cholecalciferol (Vitamin D3) [Vitamin D3] 5,000 unit PO BID 09/27/18 [History] Gabapentin [Neurontin] 100 mg PO DAILY PRN 09/27/18 [History] Allergy/AdvReac Type Severity Reaction Status Date / Time No Known Allergies Allergy Verified 09/27/18 12:55 All Systems PM: A 10-system review of systems was performed and is negative for pertinent findings except as documented above in the HPI. - Constitutional Vitals: Temp Pulse Resp BP Pulse Ox 97.5 F L 60 16 173/65 97 09/26/18 15:52 09/26/18 15:52 09/26/18 15:52 09/26/18 15:52 09/26/18 15:52 General appearance: Present: A&O X 3 - Head Head exam: Present: atraumatic, normocephalic - Neck Neck exam general surgery: Present: supple, trachea midline. Absent: lymphadenopathy - Respiratory Respiratory exam: Present: CTAB. Absent: accessory muscle use, rales, rhonchi, wheezes - Cardiovascular Cardiovascular exam: Present: RRR, +S1, +S2. Absent: diastolic murmur, gallop, rubs, systolic murmur - GI/Abdominal GI/Abdominal exam: Present: normal bowel sounds, soft, no peritoneal signs. Absent: distended, tenderness - Extremities Exam Extremities exam: Present: warm, radial pulses palpable and symmetrical. Absent: calf tenderness, cyanotic, pedal edema Internal Med - H&P Results - Labs CBC & Chem 7: 09/27/18 01:24 09/27/18 01:24 Labs: Short CBC 09/26/18 Range/Units 12:32 WBC 5.1 (4.3-11.1) K/mcL Hgb 13.1 (12.9-16.9) g/dL Hct 39.4 (37.5-50.1) % Plt Count 182 (140-400) K/mcL BMP 09/26/18 12:32 Sodium 138 Potassium 4.5 Chloride 106 Carbon Dioxide 27 BUN 32 H Creatinine 1.26 Glucose 94 Calcium 9.8 Cardiac Enzymes 09/26/18 Range/Units 12:32 Troponin I < 0.03 (< 0.04) ng/mL - Impressions ITS Impressions Head CT 09/26/18 12:41 IMPRESSION: 1. No acute intracranial abnormality. 2. Cerebral atrophy with chronic small vessel ischemic disease. D/ / Aron Parson MD / Aron Parson MD Interpreting Provider: Aron Parson MD - Assessment and Plan (1) TIA (transient ischemic attack) Status: Acute Assessment and plan: ASSESSMENT: *TIA PLAN: - Telemetry - EKG now and in AM - 2D Echo - Carotid duplex - MRI (2) CAD (coronary artery disease) Status: Acute Assessment and plan: we'll continue home medication, the patient reports no chest pain and EKG was no significant ST T changes Qualifiers: Coronary Disease-Associated Artery/Lesion type: bypass graft [place] vs. transplanted heart: [place] heart Associated angina: without angina Qualified Code(s): I25.810 - Atherosclerosis of coronary artery bypass graft(s) without angina pectoris (3) Restless leg syndrome Status: Acute (4) Gout Status: Acute Qualifiers: Gout site: unspecified site Gout etiology: unspecified cause Chronicity: chronic Presence of tophus: with tophus Qualified Code(s): M1A.9XX1 - Chronic gout, unspecified, with tophus (tophi) (5) Diabetes mellitus Status: Acute Assessment and plan: We will start the patient on insulin scale with moderate coverage. Qualifiers: Diabetes mellitus type: type 2 Diabetes mellitus mcc insulin use: without terminal superintendent use Diabetes mellitus complication status: without complication Qualified Code(s): E11.9 - Type 2 diabetes mellitus without complications - Time Spent With Patient Total time spent is greater than 50% in coordination of care (as documented) at patient's floor/unit and/or counseling patient:
--- NOTE | 2018-09-26 16:16 | Electrocardiograph Report ---
[address] [place] [address] Test Date: 2018-09-26 Pat Name: Marito Penn Department: [id number] Room: 3B31 Gender: M Wrong Address Clerk: : 1940 Requested By: Connor Hoyt Order Number: [id number] Reading MD: Estrellita Velazquez Measurements Intervals [place] Rate: 49 P: 43 MS: 134 QRS: 68 QRSD: 108 T: 60 QT: 441 QTc: 399 Interpretive Statements Sinus bradycardia Probable inferior infarct, old Electronically Signed On 09-26-2018 16:15:10 EDT by Estrellita Velazquez
[2018-09-26] MEDS ORDERED: Ondansetron 4 MG/2 ML VIAL IVP PRN (18:11)
[2018-09-26] MEDS ORDERED: Naloxone 0.4 MG/ML INJ IVP PRN (18:11)
[2018-09-26] MEDS ORDERED: Dextrose Gel 15 GM/37.5 ML TUBE PO PRN ×2 (20:00)
[2018-09-26] MEDS ORDERED: D5% in Water 1,000 ML IVC PRN (20:00)
[2018-09-26] MEDS ORDERED: *HR* Dextrose 50 % in Water (Syg) 50 ML SYRINGE IVP PRN (20:00)
[2018-09-26] MEDS: Gabapentin 100 MG CAPSULE PO SCH (20:55)
[2018-09-26 22:43] LABS: Bilirubin,Urine Negative (Negative); Blood,Urine Negative (Negative); Clarity,Urine Clear (Clear); Color,Urine Yellow (Yellow); Glucose,Urine (UA) Normal (Normal); Ketones,Urine Negative (Negative); Leukocyte Esterase,Urine Negative (Negative); Nitrite,Urine Negative (Negative); PH,Urine 6.5 pH Units (5.0-8.0); Protein,Urine Negative (Neg-Trace); Specific Gravity,Urine 1.018 (1.010-1.025); Urobilinogen,Urine Normal (Normal)
[2018-09-27 02:01] LABS: Basophils % 0.7 %; Eosinophils # 0.1 K/mcL (0.0-0.6); Eosinophils % 2.5 %; Hematocrit 40.1 % (37.5-50.1); Hemoglobin 13.5 g/dL (12.9-16.9); Immature Granulocytes % 0.4 % (0-4); Mean Corpuscular HGB Conc 33.7 g/dL (31.6-35.5); Mean Corpuscular Hemoglobin 31.7 pg (28.0-33.3); Mean Corpuscular Volume 94.1 fL (83.0-100.0); Mean Platelet Volume 9.9 fL (9.4-12.4); Monocytes # 0.5 K/mcL (0.0-1.3); Monocytes % 8.4 %; Neutrophils # 3.9 K/mcL (1.6-8.9); Platelet Count 173 K/mcL (140-400); Red Blood Count 4.26 M/mcL (4.19-5.50); Red Cell Distribution Width 13.7 % (11.5-14.5); White Blood Count 5.6 K/mcL (4.3-11.1)
[2018-09-27 02:09] LABS: INR 1.2; Prothrombin Time 13.5 Seconds (9.4-12.1)
[2018-09-27 02:12] LABS: Activated Partial Thrombo Time 33.5 Seconds (26.0-36.0)
[2018-09-27 02:21] LABS: Alanine Aminotransferase 22 Units/L (7-52); Albumin 4.2 g/dL (3.5-5.7); Albumin/Globulin Ratio 1.8 (1.1-2.2); Alkaline Phosphatase 75 Units/L (34-104); Aspartate Amino Transferase 25 Units/L (13-39); BUN/Creatinine Ratio 26 (6-26); Bilirubin,Total 0.3 mg/dL (0.3-1.0); Blood Urea Nitrogen 34 mg/dL (8-23); Calcium 9.3 mg/dL (8.6-10.3); Carbon Dioxide 23 mEq/L (23-29); Chloride 108 mEq/L (98-107); Chol/HDL Ratio 5.7 (0-4.9); Cholesterol 165 mg/dL (< 200); Globulin 2.3 g/dL (2.4-3.5); Glucose 155 mg/dL (70-105); HDL Cholesterol 29 mg/dL (40-59); Osmolality,Calculated 299 (280-300); Phosphorous 2.9 mg/dL (2.7-4.5); Potassium 4.2 mEq/L (3.5-5.1); Sodium 139 mEq/L (136-145); Total Protein 6.5 g/dL (6.4-8.9); Triglycerides 593 mg/dL (< 150); eGFR For African Americans > 60 (> 60); eGFR For Non-African Americans 54 (> 60)
[2018-09-27] MEDS ORDERED: Acetaminophen 325 MG TABLET PO PRN ×2 (03:00→05:33)
[2018-09-27] MEDS ORDERED: Nitroglycerin 0.4 MG TAB.SUBL SL PRN (05:33)
[2018-09-27] MEDS: Insulin LISPRO 300 UNITS/3 ML VIAL SQ SCH ×3 (07:30→17:20)
[2018-09-27] MEDS: Multivit/Ca/Min/Fe/FA 1 TAB TABLET PO SCH (08:16)
[2018-09-27] MEDS: Cholecalciferol (D-3) 1,000 UNIT (25MCG) TABLET PO SCH (08:17)
[2018-09-27] MEDS: Aspirin 81 MG TAB.CHEW PO SCH (08:17)
[2018-09-27] MEDS: Fenofibrate 54 MG TABLET PO SCH (08:17)
[2018-09-27] MEDS: Fluticasone Propionate Nasal 50 MCG/SPRAY BOTTLE NS SCH (08:18)
[2018-09-27] MEDS: BLOOD GLUCOSE METER MC SCH ×4 (08:19→20:37)
[2018-09-27] MEDS: (Omega-3 Acid Ethyl Esters [Lovaza] 2 GM) PO SCH ×2 (08:19→20:37)
[2018-09-27] MEDS: IPRATROPIUM BROMIDE NS SCH ×2 (08:19→20:37)
[2018-09-27] MEDS: Latanoprost 2.5 ML BOTTLE BOTH EYES SCH (08:21)
[2018-09-27] MEDS: *HR* SitaGLIPtin 25 MG TABLET PO SCH ×2 (08:24→21:11)
--- NOTE | 2018-09-27 08:26 | Internal Med Progress Note ---
<Kika Gallagher - Last Filed: 09/27/18 17:59> Hospitalist Progress Note - Encounter Date of Encounter: 09/27/18 - Exam Vitals: Temp Pulse Resp BP Pulse Ox 97.5 F L 55 19 129/63 99 09/27/18 16:16 09/27/18 16:16 09/27/18 16:16 09/27/18 16:16 09/27/18 16:16 - Assessment and Plan (1) CAD (coronary artery disease) Current Visit: No Status: Acute (2) Restless leg syndrome Current Visit: No Status: Acute (3) Gout Current Visit: No Status: Acute (4) Diabetes mellitus Current Visit: No Status: Acute (5) TIA (transient ischemic attack) Current Visit: Yes Status: Acute - Time Spent with Patient Total time spent is greater than 50% in coordination of care (as documented) at patient's floor/unit and/or counseling patient: Internal Medicine: Result - Labs CBC & Chem 7: 09/27/18 01:24 09/27/18 01:24 Labs: Short CBC 09/27/18 Range/Units 01:24 WBC 5.6 (4.3-11.1) K/mcL Hgb 13.5 (12.9-16.9) g/dL Hct 40.1 (37.5-50.1) % Plt Count 173 (140-400) K/mcL Neutrophils # 3.9 (1.6-8.9) K/mcL BMP 09/27/18 01:24 Sodium 139 Potassium 4.2 Chloride 108 H Carbon Dioxide 23 BUN 34 H Creatinine 1.30 Glucose 155 H Calcium 9.3 Liver Function 09/27/18 Range/Units 01:24 Total Bilirubin 0.3 (0.3-1.0) mg/dL AST 25 (13-39) Units/L ALT 22 (7-52) Units/L Alkaline Phosphatase 75 (34-104) Units/L Albumin 4.2 (3.5-5.7) g/dL Urine 09/26/18 Range/Units 21:35 Urine Color Yellow (Yellow) Urine Clarity Clear (Clear) Urine pH 6.5 (5.0-8.0) pH Units Ur Specific [place] 1.018 (1.010-1.025) Urine Protein Negative (Neg-Trace) mg/dL Urine Glucose (UA) Normal (Normal) mg/dL - ABG Interpretation ABG results: PT/INR, D-dimer PT 13.5 Seconds (9.4-12.1) H 09/27/18 01:24 - Impressions Impressions Brain MRI 09/27/18 05:39 IMPRESSION: 1. No acute intracranial abnormality. No acute infarct. 2. Mild global parenchymal volume loss with mild chronic microvascular ischemic changes. D/ / Tres Cha MD / Tres Cha MD Interpreting Provider: Tres Cha MD Consult Discharge Plan - Plan Referrals: Nathaly Augustin MD [Primary Care Provider] - - Attending Attestation I examined this patient and my medical decision-making was reviewed with the Resident Physician Dr Pal. I agree with the documented findings, disposition and treatment plan as described except to the extent set forth below. Mr Penn is being observed for arm numbness and leg weakness Awake, no family present. He has had no numbness/tingling or weakness since arriving to ED. denies cp, pressure, sob or palpitations. no syncope or presyncope. He is very eager for dc to home but is aware that further testing is ordered and not yet preformed. gen- alert, awake,appears stated age eyes- pupils equal round cv- reg rate and rhythm, normal s1,s2, no murmurs appreciated, no le edema lungs- ctabl, no wheezing, rhonchi or crackles, normal resp effort room air neuro- AAOx3, CN grossly intact, strenght 5/5 in all ext, sensation intact to light touch and euqual throughout all ext RLE Weakness and RUE Paraethesia, resolved prior to ED Suspected TIA, hx CVA Ruled out CVA with MRI Labs unremarkable and no signs of infectious process suspect [place] of HR 120 on VS check inaccurate as consistently HR 50-60s -ekg sinus andrew, no acute ischemia, trop neg, tele with sinus to sinus andrew 50s-60s (on home BB) and asx, echo pending -CUS done 03/2018 and nonstenotic plaques, no need to repeat pending result of echo, if normal his stroke work up is complete and he may dc back to home with , he ambulates independently and has no need for PT eval -cont home asa, plavix, statin and would fu with pcp outpt CAD s/p CABG 2014- home meds continued update- echo could not assess for PFO due to timing of saline and cardiology is recommending repet limit echo. this is ordered. pt updated by staff and he will remain in observation <Shayla Pal - Last Filed: 09/27/18 18:40> Hospitalist Progress Note - Encounter Date of Encounter: 09/27/18 Time of Encounter: 11:30 - Subjective Interval History: Patient seen examined at bedside he was alert and or 23 sitting up in a chair. He changed into his regular clothes and had packed his bags that were present at that bedside. He reported that the numbness and tingling had completely resolved while in the ED. He denied palpitations, chest pain, shortness of breath. He had no complaints and was anxious to when he might be able to be discharged. - Exam Vitals: Temp Pulse Resp BP Pulse Ox 97.7 F 121 19 143/73 91 09/27/18 07:10 09/27/18 07:10 09/27/18 07:10 09/27/18 07:10 09/27/18 07:10 Exam: Gen.: Vitals noted. No acute distress. AAOx3 HEENT: oropharynx clear, Normocephalic, atraumatic Cardiac: RRR, no murmur, +S1/S2 Pulmonary: CTA bilaterally, no wheezes, rales or rhonchi, equal chest expansion MSK: ROM intact, no joint swelling noted Extremities: no BLE edema, nontender calf, no cyanosis or clubbing Neuro: A&Ox3, moves all extremities, no focal deficits, 5/5 strength, sensation intact bilaterally Psych: Appropriate mood and behavior - Assessment and Plan (1) Numbness of right lower extremity Current Visit: Yes Status: Acute Assessment and Plan: Patient presented to the ED complaining of sudden right lower extremity numbness and tingling. He was concern because he has history of CVA in the past. -Suspect that he had a TIA. Ruled out CVA by brain MRI. No obvious evidence for infection. ACS unlikely. -risk factors of history CVA, CAD, age, DM -brain MRI and head CT negative for acute intracranial normality -03/2018 carotid ultrasound showing bilateral non-stenotic plaque. -EKG showing HR 49, no ST or T wave changes indicating ischemia -troponin negative times 3 -urinalysis negative -TTE: EF 60 to 65%, mild diastolic dysfunction. Saline bubble study suboptimal to detect PFO. -Patient reports complete resolution of the numbness and tingling of right lower extremity. There are no focal deficits on examination. See physical exam for more detail. Plan -limited echocardiogram ordered due to sub optimal echo for PFO evaluation -continue aspirin and Plavix -continue fall precautions -patient lives at home with (2) CAD (coronary artery disease) Current Visit: No Status: Acute Assessment and Plan: Patient has history of coronary artery disease. CABG 2014. -Continue home aspirin, Plavix, simvastatin, metoprolol, lisinopril (3) Restless leg syndrome Current Visit: No Status: Acute Assessment and Plan: He has known history of restless leg syndrome taken ropinirole. Continue home medication (4) Diabetes mellitus Current Visit: No Status: Acute Assessment and Plan: Patient has history of diabetes taking go beside. -Glucose is controlled -continue low-dose sliding scale insulin -continue Accu check -continue diabetic diet DVT Prophylaxis: Heparin SQ - Time Spent with Patient Total time spent is greater than 50% in coordination of care (as documented) at patient's floor/unit and/or counseling patient: Internal Medicine: Result - Labs CBC & Chem 7: 09/27/18 01:24 09/27/18 01:24 Labs: Short CBC 09/26/18 09/27/18 Range/Units 12:32 01:24 WBC 5.1 5.6 (4.3-11.1) K/mcL Hgb 13.1 13.5 (12.9-16.9) g/dL Hct 39.4 40.1 (37.5-50.1) % Plt Count 182 173 (140-400) K/mcL Neutrophils # 3.9 (1.6-8.9) K/mcL BMP 09/26/18 09/27/18 12:32 01:24 Sodium 138 139 Potassium 4.5 4.2 Chloride 106 108 H Carbon Dioxide 27 23 BUN 32 H 34 H Creatinine 1.26 1.30 Glucose 94 155 H Calcium 9.8 9.3 Cardiac Enzymes 09/26/18 Range/Units 12:32 Troponin I < 0.03 (< 0.04) ng/mL Liver Function 09/27/18 Range/Units 01:24 Total Bilirubin 0.3 (0.3-1.0) mg/dL AST 25 (13-39) Units/L ALT 22 (7-52) Units/L Alkaline Phosphatase 75 (34-104) Units/L Albumin 4.2 (3.5-5.7) g/dL Urine 09/26/18 Range/Units 21:35 Urine Color Yellow (Yellow) Urine Clarity Clear (Clear) Urine pH 6.5 (5.0-8.0) pH Units Ur Specific [place] 1.018 (1.010-1.025) Urine Protein Negative (Neg-Trace) mg/dL Urine Glucose (UA) Normal (Normal) mg/dL - ABG Interpretation ABG results: PT/INR, D-dimer PT 13.5 Seconds (9.4-12.1) H 09/27/18 01:24 - Impressions Impressions Head CT 09/26/18 12:41 IMPRESSION: 1. No acute intracranial abnormality. 2. Cerebral atrophy with chronic small vessel ischemic disease. D/ / Aron Parson MD / Aron Parson MD Interpreting Provider: Aron Parson MD Brain MRI 09/27/18 05:39 IMPRESSION: 1. No acute intracranial abnormality. No acute infarct. 2. Mild global parenchymal volume loss with mild chronic microvascular ischemic changes. D/ / Tres Cha MD / Tres Cha MD Interpreting Provider: Tres Cha MD <Kika Gallagher Harshad - Last Filed: 09/27/18 17:59> (1) CAD (coronary artery disease) Qualifiers: Coronary Disease-Associated Artery/Lesion type: bypass graft [place] vs. 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
[2018-09-27] MEDS ORDERED: *HR* Metformin 500 MG TABLET PO SCH (09:00)
[2018-09-27] MEDS ORDERED: *HR* GlipiZIDE XL (24 HR) 2.5 MG TABLET PO SCH (09:00)
--- NOTE | 2018-09-27 16:44 | Event Note ---
Date of Encounter: 09/27/18 Time of Encounter: 09:30 I examined this patient and my medical decision-making was reviewed with the Resident Physician Dr Pal. I agree with the documented findings, disposition and treatment plan as described except to the extent set forth below. Mr Penn is being observed for arm numbness and leg weakness Awake, no family present. He has had no numbness/tingling or weakness since arriving to ED. denies cp, pressure, sob or palpitations. no syncope or presyncope. He is very eager for dc to home but is aware that further testing is ordered and not yet preformed. gen- alert, awake,appears stated age eyes- pupils equal round cv- reg rate and rhythm, normal s1,s2, no murmurs appreciated, no le edema lungs- ctabl, no wheezing, rhonchi or crackles, normal resp effort room air neuro- AAOx3, CN grossly intact, strenght 5/5 in all ext, sensation intact to light touch and euqual throughout all ext RLE Weakness and RUE Paraethesia, resolved prior to ED Suspected TIA, hx CVA Ruled out CVA with MRI Labs unremarkable and no signs of infectious process suspect [place] of HR 120 on VS check inaccurate as consistently HR 50-60s -ekg sinus andrew, no acute ischemia, trop neg, tele with sinus to sinus andrew 50s-60s (on home BB) and asx, echo pending -CUS done 03/2018 and nonstenotic plaques, no need to repeat pending result of echo, if normal his stroke work up is complete and he may dc back to home with , he ambulates independently and has no need for PT eval -cont home asa, plavix, statin and would fu with pcp outpt CAD s/p CABG 2014- home meds continued
[2018-09-27] MEDS: *HR* Heparin 5,000 UNIT/ML VIAL SQ SCH (21:11)
[2018-09-27] MEDS: Gabapentin 100 MG CAPSULE PO SCH (21:11)
[2018-09-28] MEDS: *HR* Heparin 5,000 UNIT/ML VIAL SQ SCH (06:39)
[2018-09-28] MEDS: Insulin LISPRO 300 UNITS/3 ML VIAL SQ SCH ×2 (08:23→11:31)
[2018-09-28] MEDS: *HR* SitaGLIPtin 25 MG TABLET PO SCH (08:31)
[2018-09-28] MEDS: Cholecalciferol (D-3) 1,000 UNIT (25MCG) TABLET PO SCH (08:33)
[2018-09-28] MEDS: Aspirin 81 MG TAB.CHEW PO SCH (08:33)
[2018-09-28] MEDS: Multivit/Ca/Min/Fe/FA 1 TAB TABLET PO SCH (08:33)
[2018-09-28] MEDS: Fenofibrate 54 MG TABLET PO SCH (08:33)
[2018-09-28] MEDS: IPRATROPIUM BROMIDE NS SCH (08:35)
[2018-09-28] MEDS: (Omega-3 Acid Ethyl Esters [Lovaza] 2 GM) PO SCH (08:35)
[2018-09-28] MEDS: Fluticasone Propionate Nasal 50 MCG/SPRAY BOTTLE NS SCH (08:35)
[2018-09-28] MEDS: Latanoprost 2.5 ML BOTTLE BOTH EYES SCH (08:35)
[2018-09-28] MEDS: BLOOD GLUCOSE METER MC SCH (08:35)
[2018-09-28 11:28] VITALS: BP 132/65
--- NOTE | 2018-09-28 12:30 | Discharge Summary ---
<Shayla Pal - Last Filed: 09/28/18 12:28> - NOTES TO OUTPATIENT PROVIDER Notes to Outpatient Provider: Admitted for new onset right lower extremity numbness and weakness. Stroke was ruled out. No evidence of arrhythmias, no ACS. TTE: EF 60 to 65%, mild diastolic dysfunction, no PFO. This was most likely a TIA. Date of Encounter: 09/28/18 Time of Encounter: 12:30 - Discharge Diagnosis (1) CAD (coronary artery disease) Priority: Secondary Status: Acute Qualifiers: Coronary Disease-Associated Artery/Lesion type: bypass graft [place] vs. transplanted heart: [place] heart Associated angina: without angina Qualified Code(s): I25.810 - Atherosclerosis of coronary artery bypass graft(s) without angina pectoris (2) Restless leg syndrome Priority: Secondary Status: Acute (3) Diabetes mellitus Priority: Secondary Status: Acute Qualifiers: Diabetes mellitus type: type 2 Diabetes mellitus intermediate insulin use: without terminal make up operator use Diabetes mellitus complication status: without complication Qualified Code(s): E11.9 - Type 2 diabetes mellitus without complications (4) Numbness of right lower extremity Priority: Primary Status: Acute Hospital course: Mr. Penn is a 78 year old male with a past medical history of CAD, CVA, dementia, diabetes, hypertension who presented to [facility] due to new onset right lower extremity weakness, numbness, and tingling. He was admitted for possible acute CVA. The patient reported he was sitting in the car when all of a sudden his leg went numb. Due to his history of CVA his was worried that he had another stroke and brought him to the ED. He had no other symptoms of dysarthria, confusion, change in vision, increased weakness. He been compliant taking all home medications. -brain MRI and head CT negative for acute intracranial normality -03/2018 carotid ultrasound showing bilateral non-stenotic plaque. -EKG showing HR 49, no ST or T wave changes indicating ischemia -troponin negative times 3 -TTE: EF 60 to 65%, mild diastolic dysfunction. Saline bubble study suboptimal to detect PFO. -Repeat limited echo showed no detection of PFO. After results of testing suspected the patient most likely had a TIA. CVA was ruled out by brain MRI. There is no obvious evidence of infection and ACS was unlikely based on labs and testing. Shortly after admission patient's symptoms completely resolved. His neuo examination was unremarkable. He was alert and oriented times 3. Cerebellar testing was negative. Sensation intact bilaterally. 5/5 strength upper and lower extremities. The patient was instructed to continue taking home medications and to follow up with his primary care provider in 1-2 weeks. He lives at home with his whom is his primary caregiver. He stated clear understanding of the treatment plan. Discharge discussed with: patient, nurse - Time Spent with Patient Total time spent providing and/or coordinating discharge services: - Discharge Medications Prescriptions: Continued Aspirin 81 mg PO DAILY tab.chew Multivitamin [Flintstones] 1 each PO DAILY [place]-3 Acid Ethyl Esters [Lovaza] 2 cap PO BID Clopidogrel [Plavix] 75 mg PO DAILY Acetaminophen [Tylenol] 650 mg PO Q6HR PRN tablet PRN Reason: Mild Pain (1-3) Nitroglycerin 0.4 mg SL Q5M PRN tab.subl PRN Reason: Chest Pain rOPINIRole [Requip] 3 mg PO HS tablet Memantine [Namenda] 10 mg PO BID Donepezil [Aricept] 10 mg PO HS Lisinopril 2.5 mg PO DAILY Gabapentin [Neurontin] 100 mg PO HS Fenofibrate 160 mg PO DAILY Metoprolol Tartrate [Lopressor] 25 mg PO BID Ipratropium [place] 2 spray NS BID Latanoprost [Xalatan] 1 drop BOTH EYES DAILY Montelukast Sodium [Singulair] 10 mg PO DAILY Allopurinol [Zyloprim] 300 mg PO DAILY Mupirocin [Centany At] 1 each TP TID PRN PRN Reason: Inflammation Timolol Maleate 0.5% 1 drop BOTH EYES DAILY Simvastatin [Zocor] 10 mg PO HS Fluticasone Propionate Nasal [Flonase] 50 mcg NS DAILY GlipiZIDE [Glipizide Xl] 5 mg PO DAILY Sitagliptin Phos/Metformin HCl [Janumet 50-500 mg Tablet] 1 each PO BID Cholecalciferol (Vitamin D3) [Vitamin D3] 5,000 unit PO BID Gabapentin [Neurontin] 100 mg PO DAILY PRN PRN Reason: Pain Home Medications: Aspirin 81 mg PO DAILY tab.chew 02/01/15 [Rx] Multivitamin [Flintstones] 1 each PO DAILY 02/07/15 [History] [place]-3 Acid Ethyl Esters [Lovaza] 2 cap PO BID 02/07/15 [History] Clopidogrel [Plavix] 75 mg PO DAILY 03/22/15 [History] Acetaminophen [Tylenol] 650 mg PO Q6HR PRN tablet 03/27/17 [Rx] Nitroglycerin 0.4 mg SL Q5M PRN tab.subl 03/27/17 [Rx] rOPINIRole [Requip] 3 mg PO HS tablet 03/27/17 [Rx] Allopurinol [Zyloprim] 300 mg PO DAILY 10/25/17 [History] Donepezil [Aricept] 10 mg PO HS 10/25/17 [History] Fenofibrate 160 mg PO DAILY 10/25/17 [History] Gabapentin [Neurontin] 100 mg PO HS 10/25/17 [History] Ipratropium Sandwich 2 spray NS BID 10/25/17 [History] Latanoprost [Xalatan] 1 drop BOTH EYES DAILY 10/25/17 [History] Lisinopril 2.5 mg PO DAILY 10/25/17 [History] Memantine [Namenda] 10 mg PO BID 10/25/17 [History] Metoprolol Tartrate [Lopressor] 25 mg PO BID 10/25/17 [History] Montelukast Sodium [Singulair] 10 mg PO DAILY 10/25/17 [History] Mupirocin [Centany At] 1 each TP TID PRN 10/25/17 [History] Timolol Maleate 0.5% 1 drop BOTH EYES DAILY 10/25/17 [History] Simvastatin [Zocor] 10 mg PO HS 06/10/18 [History] Fluticasone Propionate Nasal [Flonase] 50 mcg NS DAILY 06/12/18 [History] GlipiZIDE [Glipizide Xl] 5 mg PO DAILY 09/26/18 [History] Sitagliptin Phos/Metformin HCl [Janumet 50-500 mg Tablet] 1 each PO BID 09/26/18 [History] Cholecalciferol (Vitamin D3) [Vitamin D3] 5,000 unit PO BID 09/27/18 [History] Gabapentin [Neurontin] 100 mg PO DAILY PRN 09/27/18 [History] Allergies/Adverse Reactions: Allergy/AdvReac Type Severity Reaction Status Date / Time No Known Allergies Allergy Verified 09/27/18 12:55 Date of admission: 09/26/18 15:18 Primary care physician: Nathaly Augustin Discharging clinician: Kika Gallagher Anticipated date of discharge: 09/28/18 - Constitutional Vitals: Temp Pulse Resp BP Pulse Ox 98.1 F 54 19 132/65 98 09/28/18 11:26 09/28/18 11:26 09/28/18 11:26 09/28/18 11:26 09/28/18 11:26 General appearance: Present: A&O X 3 Exam: Gen.: Vitals noted. No acute distress. AAOx3 HEENT: oropharynx clear, Normocephalic, atraumatic Cardiac: RRR, no murmur, +S1/S2 Pulmonary: CTA bilaterally, no wheezes, rales or rhonchi, equal chest expansion MSK: ROM intact, no joint swelling noted Extremities: no BLE edema, nontender calf, no cyanosis or clubbing Neuro: A&Ox3, moves all extremities, no focal deficits, 5/5 strength, sensation intact bilaterally Psych: Appropriate mood and behavior - Patient Status Disposition: Home, Self-Care Condition: Fair Functional capacity at discharge: independent ambulation Overall status at discharge: patient is back to baseline - Discharge Instructions Instructions: Transient Ischemic Attack (GEN) Follow Up With: Nathaly Augustin MD [Primary Care Provider] - (Office will call with date and time of appointment. ) Additional Instructions: - Follow up with your primary care provider in 1-2 weeks. - Diet and Activity Activity: resume usual activities as tolerated Diet: diabetic diet, low salt diet <Kika Gallagher - Last Filed: 09/28/18 18:34> Date of Encounter: 09/28/18 - Discharge Diagnosis (1) CAD (coronary artery disease) Status: Acute Qualifiers: Coronary Disease-Associated Artery/Lesion type: bypass graft [place] vs. transplanted heart: [place] heart Associated angina: without angina Qualified Code(s): I25.810 - Atherosclerosis of coronary artery bypass graft(s) without angina pectoris (2) Restless leg syndrome Status: Acute (3) Diabetes mellitus Status: Acute Qualifiers: Diabetes mellitus type: type 2 Diabetes mellitus terminal make up operator insulin use: without terminal make up operator use Diabetes mellitus complication status: without complication Qualified Code(s): E11.9 - Type 2 diabetes mellitus without complications (4) Numbness of right lower extremity Status: Acute Hospital course: Mr. Penn is a 78 year old male - Time Spent with Patient Total time spent providing and/or coordinating discharge services: Date of admission: 09/26/18 15:18 Primary care physician: Nathaly Augustin - Constitutional Vitals: Temp Pulse Resp BP Pulse Ox 98.1 F 54 19 132/65 98 09/28/18 11:26 09/28/18 11:26 09/28/18 11:26 09/28/18 11:26 09/28/18 11:26 - Attending Attestation I examined this patient and my medical decision-making was reviewed with the Resident Physician Dr Pal. I agree with the documented findings, disposition and treatment plan as described except to the extent set forth below. Mr Penn was observed for suspected TIA. CVA was ruled out. He will follow with PCP Awake, no family present. remains asx and at baseline. awaiting repeat echo. no weakness, numbness/tingling, mtz, vision changes or speech changes gen- alert, awake,appears stated age cv- reg rate and rhythm, normal s1,s2 lungs- ctabl, normal resp effort room air neuro- AAOx3, CN grossly intact, strength 5/5 in all ext, sensation intact to light touch and euqual throughout all ext RLE Weakness and RUE Paraethesia, resolved prior to ED suspected TIA hx CVA Ruled out CVA with MRI Labs unremarkable and no signs of infectious process -ekg sinus andrew, no acute ischemia, trop neg, tele NSR to slight asx bradycardia (on home BB) echo no acute changes, no pfo -CUS done 03/2018 and nonstenotic plaques, no need to repeat may dc back to home with , he ambulates independently and has no need for PT eval -cont home asa, plavix, statin and would fu with pcp outpt CAD s/p CABG 2014- home meds continued time spent on dc 25 min
== END 2018-09-28 13:43 | disposition home or self-care (01) ==
LOC: 3BNU 12:18 → EMEROOARM 12:18 → SUATTDRO 15:18 → 3BNU 15:35
PROVIDERS: ADMIT Internal Medicine Nephrology; ATTEND Internal Medicine

== ENCOUNTER 2021-12-02 12:47 | Inpatient (IN) ==
[2021-12-02] MEDS ORDERED: *HR* LORazepam Oral Conc 2 MG/ML PO PRN (15:51)
[2021-12-02] MEDS ORDERED: Ondansetron ODT 4 MG TAB.RAPDIS SL PRN (15:51)
[2021-12-02] MEDS ORDERED: Bisacodyl 10 MG RECTAL SUPPOSITORY RC PRN (15:51)
[2021-12-02] MEDS: Haloperidol Oral Conc 10 MG/5 ML UDC PO PRN (18:54)
[2021-12-02] MEDS ORDERED: Haloperidol Oral Conc 10 MG/5 ML UDC PO ONE (19:14)
[2021-12-02] MEDS ORDERED: *HR* LORazepam Oral Conc 2 MG/ML SL ONE (19:35)
[2021-12-02] MEDS ORDERED: *HR* HYDROmorphone 2 MG/ML SYRINGE IVP ONE (20:44)
[2021-12-02] MEDS ORDERED: *HR* LORazepam 2 MG/ML VIAL IVP ONE (20:45)
[2021-12-02] MEDS ORDERED: *HR* HYDROmorphone (PF) 1 MG/ML SYRINGE IVP PRN (21:02)
[2021-12-02] MEDS: Gabapentin 100 MG CAPSULE PO SCH (21:05)
[2021-12-02] MEDS: Hyoscyamine SL 0.125 MG TAB.SUBL SL PRN (22:53)
[2021-12-02] MEDS: Haloperidol Oral Conc 10 MG/5 ML UDC PO SCH (23:22)
[2021-12-03] MEDS: *HR* LORazepam 2 MG/ML VIAL IVP SCH ×7 (00:52→23:23)
[2021-12-03] MEDS: *HR* HYDROmorphone 2 MG/ML SYRINGE IVP SCH ×4 (00:53→12:37)
[2021-12-03] MEDS: Haloperidol Oral Conc 10 MG/5 ML UDC PO SCH ×3 (06:10→23:23)
[2021-12-03] MEDS: lisinopriL 5 MG TABLET PO SCH (09:34)
[2021-12-03] MEDS: Gabapentin 100 MG CAPSULE PO SCH ×3 (09:34→21:11)
[2021-12-03] MEDS: *HR* LORazepam 2 MG/ML VIAL IVP PRN ×3 (09:59→17:40)
[2021-12-03] MEDS: *HR* HYDROmorphone (PF) 1 MG/ML SYRINGE IVP PRN ×3 (15:40→23:24)
[2021-12-03] MEDS: Hyoscyamine SL 0.125 MG TAB.SUBL SL PRN ×2 (17:40→23:24)
[2021-12-03] MEDS ORDERED: Scopolamine Patch 1.5 MG PATCH.TD72 TD SCH (23:45)
[2021-12-04] MEDS: Haloperidol Oral Conc 10 MG/5 ML UDC PO SCH ×3 (06:07→23:01)
[2021-12-04] MEDS: Gabapentin 100 MG CAPSULE PO SCH ×2 (07:18→19:36)
[2021-12-04] MEDS: lisinopriL 5 MG TABLET PO SCH (07:18)
[2021-12-04] MEDS: *HR* LORazepam 2 MG/ML VIAL IVP SCH ×2 (08:40→15:31)
[2021-12-04] MEDS: *HR* HYDROmorphone (PF) 1 MG/ML SYRINGE IVP PRN ×4 (08:43→23:54)
[2021-12-04] MEDS: Haloperidol Oral Conc 10 MG/5 ML UDC PO PRN ×2 (10:37→19:46)
[2021-12-04] MEDS: *HR* LORazepam 2 MG/ML VIAL IVP PRN ×4 (12:59→23:54)
[2021-12-04 20:03] VITALS: BP 147/73; PULSE 116; TEMP 99.7; O2SAT 85
[2021-12-04] MEDS ORDERED: Acetaminophen 650 MG RECTAL SUPP RC PRN (20:18)
[2021-12-05] MEDS: Haloperidol Oral Conc 10 MG/5 ML UDC PO PRN (01:57)
[2021-12-05] MEDS: *HR* LORazepam 2 MG/ML VIAL IVP SCH (01:58)
[2021-12-05] MEDS: *HR* HYDROmorphone (PF) 1 MG/ML SYRINGE IVP PRN ×3 (02:00→06:24)
[2021-12-05] MEDS: *HR* LORazepam 2 MG/ML VIAL IVP PRN ×2 (04:06→06:25)
== END 2021-12-05 06:45 | disposition expired | DRG 951 ==
LOC: 2ANU 15:50
PROVIDERS: ADMIT Internal Medicine Hospice and Palliative Medicine; ATTEND Internal Medicine Hospice and Palliative Medicine